=== PATIENT | male | born 1955 | race Asian ===

== ENCOUNTER 2020-06-02 01:27 | Emergency (ER) | payer BC ==
[~2020-06-02] VITALS: Ht 165.1 cm; Wt 77.1 kg
[2020-06-02 01:30] VITALS: BP_SYST 171
[2020-06-02] MEDS ORDERED: IBUPROFEN 600 MG TABLET PO ONE (02:45)
[2020-06-02] MEDS ORDERED: DIPH-TET-PERTUS Vaccine 0.5 ML VIAL (ADACEL) I.M. ONE (02:45)
[2020-06-02 03:10] VITALS: BP_SYST 154
== END 2020-06-02 03:10 | disposition home or self-care (01) ==
LOC: SED 01:27
DX: T63.2X1A Toxic effect of venom of scorpion, accidental (unintentional), initial encounter (principal); Y92.89 Other specified places as the place of occurrence of the external cause
CPT/HCPCS: 90715; 99283